=== PATIENT | male | born 1980 | race Caucasian/White ===

== ENCOUNTER 2022-04-19 06:05 | Day surgery (SDC) | payer OTHER ==
[2022-04-14 16:25] VITALS: BMI 25.8
[2022-04-19] MEDS ORDERED: PROPOFOL 20 ML ONE ×3 (07:28→08:26)
[2022-04-19] MEDS ORDERED: SUCCINYLCHOLINE CHLORIDE 200 MG/10 ML SYRINGE ONE (07:28)
[2022-04-19] MEDS ORDERED: MIDAZOLAM HCL 2 MG/2 ML SINGLE DOSE VIAL ONE ×3 (07:28→08:18)
[2022-04-19] MEDS ORDERED: TRANEXAMIC ACID 1000 MG/10 ML VIAL ONE (08:13)
[2022-04-19] MEDS ORDERED: VANCOMYCIN 1,000 MG VIAL (RESTRICTED TO ID ONLY) ONE (08:13)
[2022-04-19] MEDS ORDERED: LIDOCAINE HCL/PF 2% SDV 5ML VIAL ONE (08:13)
[2022-04-19] MEDS ORDERED: ceFAZolin SODIUM 1 GM VIAL ONE ×2 (08:13→09:34)
[2022-04-19] MEDS ORDERED: BUPIVACAINE HCL/PF 0.25% (2.5MG/ML) 10 ML VIAL ONE (09:05)
[2022-04-19] MEDS ORDERED: BUPIVACAINE HCL/PF 0.25% (2.5MG/ML) 10 ML VIAL IJ ONE (09:22)
[2022-04-19] MEDS ORDERED: ONDANSETRON 4 MG/2 ML VIAL IVPUSH PRN (09:53)
[2022-04-19] MEDS ORDERED: PROMETHAZINE HCL 25 MG/1 ML VIAL IVPB PRN (09:53)
[2022-04-19] MEDS ORDERED: oxyCODONE HCL 5 MG TABLET PO PRN (09:53)
[2022-04-19] MEDS ORDERED: LACTATED RINGERS SOLUTION 1,000 ML IV SCH (10:00)
[2022-04-19 11:08] VITALS: RESP 20
[2022-04-19 11:52] VITALS: TEMP 97.6
[2022-04-19 13:46] VITALS: BP 116/68; PULSE 72
== END 2022-04-19 13:20 | disposition home or self-care (01) ==
LOC: FASU 06:05 → EDSEX 07:30 → FASU 13:20
PROVIDERS: ATTEND Orthopaedic Surgery Orthopaedic Surgery of the Spine
PROC: 0SNG0ZZ Release Left Ankle Joint, Open Approach (ICD-10-PCS; 2022-04-19)
PROC: 0QCH0ZZ Extirpation of Matter from Left Tibia, Open Approach (ICD-10-PCS; principal; 2022-04-19 08:33)
DX: M89.8X6 Other specified disorders of bone, lower leg (principal)
CPT/HCPCS: 88305-TC; 88311-TC; 94760